=== PATIENT | female | born 1985 | race Caucasian/White ===

== ENCOUNTER 2022-08-30 05:43 | Emergency (ER) | payer MEDICAID ==
[~2022-08-30] VITALS: Ht 177.8 cm; Wt 100.6 kg
[2022-08-30 08:48] LABS: URINE HCG NEGATIVE (NEG)
[2022-08-30 08:51] LABS: CLARITY,URINE SLIGHTLY CLOUDY (Clear); COLOR,URINE STRAW (Yellow); GLUCOSE, URINE NEGATIVE (Neg); KETONES,URINE NEGATIVE (Neg); LEUKOCYTE ESTERASE ,URINE NEGATIVE (Neg); NITRITES, URINE NEGATIVE (Neg); OCCULT BLOOD,URINE NEGATIVE (Neg); PH,URINE 5.5 (4.8-8.0); PROTEIN,URINE NEGATIVE (Neg); UROBILINOGEN,URINE 0.2 E.U/dL (0.2-1.0)
[2022-08-30 08:53] LABS: UA COLLECTION TYPE CLN CATCH MIDSTREAM
[2022-08-30 09:03] LABS: URINE AMPHETAMINE SCREEN NEGATIVE (Neg); URINE BARBITUATE SCREEN NEGATIVE (Neg); URINE BENZODIAZEPINES SCREEN NEGATIVE (Neg); URINE CANNABINOID SCREEN POSITIVE (Neg); URINE COCAINE SCREEN NEGATIVE (Neg); URINE METHADONE SCREEN NEGATIVE (Neg); URINE OPIATE SCREEN NEGATIVE (Neg); URINE PHENCYCLIDINE SCREEN NEGATIVE (Neg)
[2022-08-30 09:10] LABS: MUCUS STRANDS FEW /LPF (Neg); SQUAMOUS EPITHELIAL CELL,UR MODERATE /LPF (FEW)
[2022-08-30 09:12] LABS: BACTERIA,URINE 1+ /HPF (Neg)
[2022-08-30 09:13] LABS: RBC,URINE 0-2 /HPF (0-2); WBC,URINE 0-4 /HPF (0-4)
[2022-08-30] MEDS ORDERED: LORazepam 1 MG tablet PO ONE (09:45)
[2022-08-30] MEDS ORDERED: hydrOXYzine 25 MG tablet PO ONE (09:45)
--- NOTE | 2022-08-30 09:57 | NUR ---
SPOKE TO MD AND CONFIRMED TO GIVE PATIENT ATIVAN AND ATARAX TOGETHER. PATIENT STATES SHE IS VERY ANXIOUS.
[2022-08-30 11:23] LABS: BASOPHILS # (AUTO) 0.1 X10'3 (0-0.2); BASOPHILS % (AUTO) 0.5 % (0-1); EOSINOPHILS # (AUTO) 0.4 X10'3 (0-0.9); EOSINOPHILS % (AUTO) 3.7 % (0-6); HEMATOCRIT 37.4 % (35.0-45.0); HEMOGLOBIN 12.7 g/dl (12.0-16.0); LYMPHOCYTES # (AUTO) 1.7 X10'3 (1.1-4.8); LYMPHOCYTES % (AUTO) 16.3 % (21-51); MEAN CORPUSCULAR HEMOGLOBIN 29.3 PG (27.0-31.0); MEAN CORPUSCULAR HGB CONC 33.9 g/dL (33.0-36.5); MEAN CORPUSCULAR VOLUME 86.3 FL (78-98); MONOCYTES # (AUTO) 0.7 X10'3 (0-0.9); MONOCYTES % (AUTO) 6.2 % (2-12); NEUTROPHILS # (AUTO) 7.7 X10'3 (1.8-7.7); NEUTROPHILS % (AUTO) 73.3 % (42-75); PLATELET COUNT 272 X10'3 (140-440); RED BLOOD COUNT 4.34 X10'6 (4.20-5.60); RED CELL DISTRIBUTION WIDTH 12.6 % (11.5-14.5); WHITE BLOOD COUNT 10.5 X10'3 (4.5-11.0)
[2022-08-30] MEDS ORDERED: ROSU10TA2 PO ×2 (11:24→16:38)
[2022-08-30] MEDS ORDERED: BUPR150T8 PO (11:24)
[2022-08-30] MEDS ORDERED: LISI20TA28 PO (11:24)
[2022-08-30] MEDS ORDERED: METF-436 PO (11:24)
[2022-08-30] MEDS ORDERED: ESZO2TAB22 PO ×2 (11:24→16:38)
[2022-08-30 11:49] LABS: ALANINE AMINOTRANSFERASE 28 U/L (12-78); ALBUMIN 3.9 G/DL (3.4-5.0); ALBUMIN/GLOBULIN RATIO 1.1 (1.1-1.5); ALKALINE PHOSPHATASE 110 IU/L (46-116); ANION GAP 11 (8-16); ASPARTATE AMINO TRANSFERASE 31 U/L (10-37); BILIRUBIN,TOTAL 0.3 MG/DL (0.1-1.0); BLOOD UREA NITROGEN 7 MG/DL (7-18); BUN/CREATININE RATIO 9.2 (10.0-20.0); CALCIUM 9.2 MG/DL (8.5-10.1); CHLORIDE 102 MMOL/L (99-107); CREATININE 0.76 MG/DL (0.40-0.90); GLUCOSE 109 MG/DL (70-104); SODIUM 138 MMOL/L (135-145); TOTAL CARBON DIOXIDE 25.2 MMOL/L (24-32); TOTAL PROTEIN 7.6 G/DL (6.4-8.2); eGFR 86 ML/MIN
[2022-08-30 12:15] LABS: ETHANOL < 0.010 GM/DL (0.0-0.010)
--- NOTE | 2022-08-30 12:45 | NUR ---
Pt. ambulated over from the Main ER accompanied by staff and her significant other. She is changing into green scrubs at this time. Significant other is at bedside.
--- NOTE | 2022-08-30 13:28 | NUR ---
Pt. reports she is a type two diabetic and requested her blood sugar be tested. BS is WNL and pt. was provided with a snack. She currently takes Metformin to control blood sugars.
--- NOTE | 2022-08-30 13:49 | NUR ---
Pt's packet was sent to [facility].
--- NOTE | 2022-08-30 13:52 | NUR ---
Spoke to pharmacy and pharmacist is working on pt's Medication Recc at this time.
--- NOTE | 2022-08-30 14:27 | NUR ---
pt sitting up in bed visiting with guest. No obvious distress noted.
--- NOTE | 2022-08-30 15:08 | NUR ---
Per [facility] they have received pt's packet and will evauate her. Pt. notified and reports understanding.
[2022-08-30] MEDS ORDERED: NORE1TAB PO (16:38)
[2022-08-30] MEDS ORDERED: OMEP20CA16 PO (16:38)
[2022-08-30] MEDS ORDERED: HYDR50TA65 PO (16:38)
[2022-08-30] MEDS ORDERED: LISI5TAB22 PO (16:38)
[2022-08-30] MEDS ORDERED: PROP10TA10 PO (16:38)
[2022-08-30] MEDS ORDERED: ALPR-149 PO (16:38)
[2022-08-30] MEDS ORDERED: METF-900 PO (16:38)
[2022-08-30] MEDS ORDERED: CARB-101 PO (16:38)
[2022-08-30] MEDS ORDERED: AMPH10TA23 PO (16:38)
[2022-08-30] MEDS ORDERED: BUPR-317 PO (16:38)
[2022-08-30] MEDS ORDERED: OLAN5TAB3 PO (16:38)
--- NOTE | 2022-08-30 17:40 | NUR ---
Pt. ambulated off the unit accompanied by her significant other, security, and Tech r/t discharge. Pt's belongings and medications were returned to her. She signed a release of medical records and was provided with her lab results to take to her own doctor. This automobile and property underwriter reviewed pt's discharge paperwork with her and she reported understading. Pt's significant other will be transporting her home. She is able to contract for safety.
[2022-08-30 18:21] VITALS: BP 148/100
== END 2022-08-30 18:23 | disposition home or self-care (01) ==
LOC: ER 05:44
DX: F60.3 Borderline personality disorder (principal); Z20.822 Contact with and (suspected) exposure to COVID-19; F31.9 Bipolar disorder, unspecified; Z88.8 Allergy status to other drugs, medicaments and biological substances
CPT/HCPCS: 36415; 80053; 80305; 80320; 81001; 81025; 82948; 84443; 85025; 87811; 99284; Q0177

== ENCOUNTER 2023-06-27 11:39 | Emergency (ER) | payer MEDICAID ==
[~2023-06-27] VITALS: Ht 177.8 cm; Wt 108.5 kg
[~2023-06-27 11:39] MED LIST: ALPR-149 PO; AMPH10TA23 PO; BUPR-317 PO; CARB-101 PO; ESZO2TAB22 PO; HYDR50TA65 PO; LISI5TAB22 PO; METF-900 PO; NORE1TAB PO; OLAN5TAB3 PO; OMEP20CA16 PO; PROP10TA10 PO; ROSU10TA2 PO
[2023-06-27 12:08] VITALS: TEMP 97.9
[2023-06-27 12:52] LABS: BASOPHILS % (AUTO) 0.4 % (0-1); EOSINOPHILS # (AUTO) 0.5 X10'3 (0-0.9); HEMATOCRIT 36.6 % (35.0-45.0); HEMOGLOBIN 12.4 g/dl (12.0-16.0); LYMPHOCYTES # (AUTO) 1.7 X10'3 (1.1-4.8); LYMPHOCYTES % (AUTO) 15.5 % (21-51); MEAN CORPUSCULAR HEMOGLOBIN 29.6 PG (27.0-31.0); MEAN CORPUSCULAR HGB CONC 33.8 g/dL (33.0-36.5); MEAN CORPUSCULAR VOLUME 87.6 FL (78-98); MEAN PLATELET VOLUME 8.6 FL (7.4-10.4); MONOCYTES # (AUTO) 0.9 X10'3 (0-0.9); MONOCYTES % (AUTO) 8.1 % (2-12); NEUTROPHILS # (AUTO) 7.6 X10'3 (1.8-7.7); PLATELET COUNT 227 X10'3 (140-440); RED BLOOD COUNT 4.18 X10'6 (4.20-5.60); RED CELL DISTRIBUTION WIDTH 12.2 % (11.5-14.5); WHITE BLOOD COUNT 10.7 X10'3 (4.5-11.0)
[2023-06-27 12:55] LABS: URINE HCG NEGATIVE (NEG)
[2023-06-27 12:58] LABS: BILIRUBIN,URINE NEGATIVE (Neg); CLARITY,URINE CLEAR (Clear); COLOR,URINE YELLOW (Yellow); GLUCOSE, URINE NEGATIVE (Neg); KETONES,URINE NEGATIVE (Neg); LEUKOCYTE ESTERASE ,URINE TRACE (Neg); NITRITES, URINE NEGATIVE (Neg); OCCULT BLOOD,URINE NEGATIVE (Neg); PROTEIN,URINE NEGATIVE (Neg); UROBILINOGEN,URINE 0.2 E.U/dL (0.2-1.0)
[2023-06-27 13:04] LABS: UA COLLECTION TYPE NON-SPECIFIED
[2023-06-27 13:06] LABS: BACTERIA,URINE 1+ /HPF (Neg); MUCUS STRANDS FEW /LPF (Neg); SQUAMOUS EPITHELIAL CELL,UR MANY /LPF (FEW); WBC,URINE 0-4 /HPF (0-4)
[2023-06-27 13:09] LABS: ALANINE AMINOTRANSFERASE 34 U/L (12-78); ALBUMIN 3.6 G/DL (3.4-5.0); ALBUMIN/GLOBULIN RATIO 0.9 (1.1-1.5); ALKALINE PHOSPHATASE 117 IU/L (46-116); ANION GAP 5 (8-16); ASPARTATE AMINO TRANSFERASE 41 U/L (10-37); BILIRUBIN,TOTAL 0.3 MG/DL (0.1-1.0); BLOOD UREA NITROGEN 10 MG/DL (7-18); BUN/CREATININE RATIO 13.3 (10.0-20.0); CALCIUM 8.9 MG/DL (8.5-10.1); CHLORIDE 101 MMOL/L (99-107); CREATININE 0.75 MG/DL (0.40-0.90); GLUCOSE 123 MG/DL (70-104); LIPASE 30 U/L (16-77); POTASSIUM 3.8 MMOL/L (3.5-5.1); SODIUM 136 MMOL/L (135-145); TOTAL CARBON DIOXIDE 30.3 MMOL/L (24-32); TOTAL PROTEIN 7.5 G/DL (6.4-8.2); eCRCL 112 ML/MIN; eGFR 87 ML/MIN
[2023-06-27] MEDS ORDERED: LOPE-190 PO (14:34)
[2023-06-27 14:44] VITALS: BP 153/84; PULSE 94; RESP 16; O2SAT 97
== END 2023-06-27 14:46 | disposition home or self-care (01) ==
LOC: ER 11:40
DX: R14.0 Abdominal distension (gaseous) (principal); Z88.8 Allergy status to other drugs, medicaments and biological substances; Z79.899 Other long term (current) drug therapy
CPT/HCPCS: 36415; 80053; 81001; 81025; 83690; 85025; 99283